=== PATIENT | female | born 1950 | race Hispanic/Latino ===

== ENCOUNTER → 2020-04-10 | Outpatient (CLI) | payer MEDICARE | END | disposition home or self-care (01) | LOC: RAH 09:58 | PROVIDERS: ATTEND Internal Medicine | DX: I08.1 Rheumatic disorders of both mitral and tricuspid valves (principal); I31.3 Pericardial effusion (noninflammatory); J84.9 Interstitial pulmonary disease, unspecified; R91.8 Other nonspecific abnormal finding of lung field; R18.8 Other ascites; J47.9 Bronchiectasis, uncomplicated; E66.9 Obesity, unspecified; R55 Syncope and collapse | CPT/HCPCS: 71250; 93306 ==

== ENCOUNTER → 2021-06-13 | Outpatient (CLI) | payer MEDICARE | END | disposition home or self-care (01) | LOC: SHCH 14:28 | PROVIDERS: ATTEND Internal Medicine Cardiovascular Disease | DX: R22.43 Localized swelling, mass and lump, lower limb, bilateral (principal) | CPT/HCPCS: 93970 ==